=== PATIENT | female | born 1990 | race Caucasian/White ===

== ENCOUNTER 2023-05-30 09:40 | Outpatient (CLI) | payer BC, SELFPAY | END 2023-05-30 09:41 | disposition home or self-care (01) | PROVIDERS: Visit Provider Obstetrics & Gynecology | DX: R10.2 Pelvic and perineal pain (principal) | CPT/HCPCS: 36415; 86850; 86900; 86901 ==

== ENCOUNTER 2023-06-07 03:33 | Day surgery (SDC) | payer BC, SELFPAY ==
[2023-05-29 07:51] VITALS: BMI 22.4
--- NOTE | 2023-05-29 07:59 | PC.NURSE ---
Report to the Outpatient Waiting Room, entrance under the green pavilion located off [facility], at time _0815_ on date 06-07-2023_. Planned Procedure Time: _1015_. Time changes happen often and if your time is changed the preop area will call you the afternoon before. - You and your visitor will be asked to self-screen and do not enter if you have any COVID symptoms. - A mask is optional within the hospital at this time. Patients may have clear liquids (water, carbonated beverages, clear teas, apple juice) until 3 hours prior to surgery with a maximum of 20 ounces. - No food from midnight until time of surgery Take the following medications with a SIP of water the morning of surgery: ___None DO NOT STOP ANY OF YOUR OTHER PRESCRIPTION MEDICATIONS PRIOR TO SURGERY ?EXCEPT THE FOLLOWING Medications to discontinue per physician None Date to take last dose Please no make-up, nail czech, hairspray, perfume, deodorant, or body powder the day of surgery. No jewelry (including any body piercings) or valuables the day of surgery, leave them at home. Please take a shower or bath the night before, or the morning of, surgery with an antibacterial soap. Wear comfortable, loose fitting clothing. - Jewelry must be removed prior to entering the operating room. Rings and piercings that are not removed may be cut off. - The hospital will not accept responsibility for valuables. - Please leave all valuables, including medications, at home the day of surgery. If you are going home after surgery, a licensed intermodal truck driver must drive you home. - NO public transportation without another adult if you receive anesthesia. - We recommend that an adult stay with you for 24 hours following discharge. - We also recommend that you do not drive, make important decision, drink alcoholic beverages, or take any drugs that were not prescribed by your health care provider for at least 24 hours after your discharge time. Follow any additional instructions given to you from your surgeon. If you or anyone in your household have experienced Covid symptoms in the past week, please notify your surgeon or the nurse liaison at the phone number below for possible testing. Telephone instructions given to __Sararhonda__and asked if any additional questions and then verbalized understanding. Patient advised to call surgeon office or pre surgery nurse liaison [phone] if any additional questions.
--- NOTE | 2023-06-04 12:31 | P.HP_ITS ---
H&P: HPI History of Present Illness Date/Time: 06/04/23 12:31 Chief Complaint: Pelvic pain/dyspareunia/endometriosis Narrative: This is a 32-year-old female 4 para 2 status post hysterectomy who is admitted for diagnostic laparoscopy secondary to severe pelvic pain. She apparently had stage IV endometriosis with her hysterectomy in 2014. This is it suspected. Ultrasound was not helpful for her her exam shows extreme pain to palpation. Risks and benefits of this procedure reviewed including not exclusive of , aspiration pneumonia, bleeding, transfusion, perforation injury to bowel, bladder, ureters, or other internal organs with need for open laparotomy repair. She received the [employer] handout entitled laparoscopy. She had all questions answered. She asked to proceed PMFSH Social History Social History Smoking status: Never smoker Alcohol intake: current Living arrangements: with family Spiritual care concerns: No Meds Home Medications and Allergies Home Medications Medication Instructions Recorded Confirmed Type No Home Medications 05/29/23 05/29/23 History Allergies Allergy/AdvReac Type Severity Reaction Status Date / Time No Known Allergies Allergy Verified 05/29/23 07:50 Exam Const: General: cooperative, healthy appearing, comfortable and average body h abitus Orientation/consciousness: oriented to person, oriented to place and oriented to time HENMT: Head: normal to inspection Resp: Effort & Inspection: normal respiratory effort Cardio: Rate: regular rate Rhythm: regular rhythm Heart sounds: S1 normal heart sound present and S2 normal heart sound present GI: Inspection: normal to inspection Auscultation: normal bowel sounds : External Female Exam: normal external appearance Speculum Exam - Vagina: normal appearance of the vagina Speculum Exam - Cervix: Cervix absent Bimanual exam- vagina & uterus: uterus absent Bimanual Exam- Adnexa, other: tender bilaterally and No adnexal tenderness Assessment and Plan Assessment and plan (1) Pelvic pain: Code(s): R10.2 - Pelvic and perineal pain Status: Acute (2) Dyspareunia: Status: Acute Plan Diagnostic laparoscopy
[2023-06-07] VITALS (8 sets, daily range): BP systolic 100–143; BP diastolic 50–69; PULSE 52–96; RESP 12–20; TEMP 36.1–37.2; O2SAT 99–100
--- NOTE | 2023-06-07 06:09 | WPDHPUPDATE1 ---
History and Physical Update Update Date/Time: 06/07/23 06:09 History and Physical has been reviewed, including an updated exam of the patient. There are NO changes in the patient's condition. Risks, benefits, and alternatives have been discussed and questions answered. Patient agrees to proceed with procedure.
--- NOTE | 2023-06-07 08:45 | WPDANESEPPF ---
Anes - Initial Pre Proc Eval Procedure: Operation Date: 06/07/23 10:15 Proposed Procedures p Diagnostic Laparoscopy - Frank Aguilar MD Date/Time: 06/07/23 08:45 Surgeon: Frank Aguilar MD Pre Op Diagnosis: pelvic pain, dyspareunia,hx of endometriosis Patient Data Age: 32 Gender: F Height: 1.75 m Weight: 69 kg Allergies Allergy/AdvReac Type Severity Reaction Status Date / Time No Known Allergies Allergy Verified 05/29/23 07:50 Home Medications Medication Instructions Recorded Confirmed Type hydrocodone 5 mg-acetaminophen 325 1 tablet PO Q4H PRN pain #20 tabs 06/07/23 Rx mg tablet Patient hx anesthesia problems: post op nausea/vomiting Family hx anesthesia problems: none Results Review: All pre-operative results and documents have been reviewed as part of the pre-operative evaluation. [facility] Social History Social History Smoking status: Never smoker Alcohol intake: current Living arrangements: with family Spiritual care concerns: No Anes - Eval Final PreProcedure Day of Procedure 06/07/23 08:45 Patient weight: normal Heart: regular rate and rhythm Lungs: clear to auscultation Airway: Mallampati scale class II Neurological: alert and oriented Last oral intake: >/= 8 hours ASA classification: I Emergent: no Anesthetic plan: proceed Anesthesia type and monitoring: general ETT and standard monitoring Results Review: All pre-operative results and documents have been reviewed as part of the pre-operative evaluation. Informed Consent: The patient's anesthetic plan and its attendant risks and benefits were discussed with the patient/family/POA. Questions were solicited and answers provided to the satisfaction of the patient/family/POA.
[2023-06-07] MEDS: ACETAMINOPHEN 500 MG TABLET 1000 MG PO (09:10)
[2023-06-07] MEDS: SCOPOLAMINE 1 MG PATCH 1 PATCH TRANSDERM (09:12)
[2023-06-07] MEDS: LACTATED RINGERS 1,000 ML 30 ML IV CONT (09:25)
[2023-06-07] MEDS: fentaNYL CITRATE INJ (*CRX) 100 MCG/2 ML VIAL 25 MCG IV PUSH (09:27)
[2023-06-07] MEDS: KETOROLAC 15 MG/ML VIAL (*BKC) IV PUSH (09:28)
--- NOTE | 2023-06-07 10:30 | W.PM.PROC2 ---
Procedure Note - Detailed Date of Procedure 06/07/23 Pre-op Diagnosis pelvic pain, dyspareunia,hx of endometriosis Post-op Diagnosis Same Procedure Performed Laparoscopic destruction of endometriosis and lysis of adhesions Surgeon Frank Aguilar MD Anesthesia General Indications so 32-year-old status post hysterectomy with history of endometriosis pelvic pain Findings normal-appearing ovaries tubes bilaterally. Small areas of powder burn endometriosis with [id number] of serosanguineous fluid in the cul-de-sac. The uterus was surgically absent. Was a normal-appearing appendix gallbladder and liver edge Description of Procedure patient was prepped draped in the normal sterile fashion placed in the dorsal lithotomy position. Under excellent general trach anesthesia weighted speculum placed posterior fornix. Sponge stick was placed in the bladder drained of clear urine. The weighted speculum was removed the gloves were changed. A supraumbilical incision made the Veress needle passed in the abdomen. Abdomen filled with CO2 gas [id number]. The 5mm trocar advanced under direct visualization assuring no injury. Patient placed in Trendelenburg and a suprapubic incision made. The 5mm trocar advanced under direct visualization assuring no injury. The above findings were seen. The to20cc of serosanguineous fluid suctioned a removed from the pelvis and irrigation undertaken. Small areas of endometriosis were seen along the uterosacral ligament these were cauterized at 35 w per 2nd with monopolar cautery. The colon was markedly adherent on the left side using the scissors this was sharply dissected till was relieved from its attachments to the left adnexa. Irrigation undertaken until clear and photo documentation was undertaken. Lower site removed. The gas removed from the abdomen. The upper site removed. The incisions closed with 4 Monocryl and glue. Patient went recovery in satisfactory condition. All sponge, needle, instrument counts were correct. There were no immediate complications Estimated Blood Loss 5 Drains No Packing No Pathology None sent Complications No immediate complications Condition Stable Disposition PACU
[2023-06-07] MEDS: HYDROmorphone HCL INJ (*CRX) 1 MG/ML SYR 0.5 MG IV PUSH ×2 (11:11→11:23)
[2023-06-07] MEDS: oxyCODONE HCL (*CRX) 5 MG TAB IR PO (12:59)
== END 2023-06-07 12:59 | disposition home or self-care (01) ==
PROVIDERS: Visit Provider Obstetrics & Gynecology
PROC: (CPT 49320; principal; 2023-06-07 10:15)
DX: N80.3C9 Endometriosis of the uterosacral ligament(s), unspecified side, unspecified depth (principal); R10.2 Pelvic and perineal pain; N94.10 Unspecified dyspareunia; Z90.710 Acquired absence of both cervix and uterus
CPT/HCPCS: 58662; A9270; J1170; J1200; J1885; J2250; J2405; J2704; J3010; J7120